=== PATIENT | female | born 2000 | race Asian ===

== ENCOUNTER 2019-01-03 17:19 | Emergency (ER) | payer OTHER ==
[~2019-01-03] VITALS: Ht 157.5 cm; Wt 49.4 kg
[2019-01-03 17:25] VITALS: Ht 157.5 cm; Wt 49.4 kg
[2019-01-03 18:56] VITALS: BP 128/68
== END 2019-01-03 18:56 | disposition home or self-care (01) ==
LOC: ED 17:19
DX: R58 Hemorrhage, not elsewhere classified (principal); L98.9 Disorder of the skin and subcutaneous tissue, unspecified
CPT/HCPCS: 90715